=== PATIENT | female | born 1950 | race Caucasian/White ===

== ENCOUNTER → 2017-02-16 | Outpatient (CLI) | payer MEDICARE ==
[~2017-02-16] MED LIST: AMLO5TAB2 PO; BUDE10.2 PO; CLON0.1T PO; CLON0.2T10 PO; DUONEB INH; FURO20TA3 PO; IPRA15SP2 INH; IPRA3AMP INH; LEVO500T8 PO; METF850T2 PO; OLME1TAB28 PO; OLME20TA19 PO; OLME40TA12 PO; PANT40TA5 PO; PRAV40TA2 PO; PRED10TA14 PO; PRED50TA PO; SIMV10TA3 PO; oxygen INH
== END | disposition home or self-care (01) ==
LOC: CARD 12:22
PROVIDERS: ATTEND Nurse Practitioner Family
DX: J44.9 Chronic obstructive pulmonary disease, unspecified (principal); J96.10 Chronic respiratory failure, unspecified whether with hypoxia or hypercapnia
CPT/HCPCS: 94060; 94726; 94729

== ENCOUNTER → 2017-04-08 | Outpatient (CLI) | payer MEDICARE | LOC: PETCFH 07:56 | DX: R14.0 Abdominal distension (gaseous) (principal) | CPT/HCPCS: 78227; A9537 ==

== ENCOUNTER → 2017-04-26 | Outpatient (CLI) | payer MEDICARE | END | disposition home or self-care (01) | LOC: CFH 08:19 | PROVIDERS: ATTEND Nurse Practitioner | DX: Z13.820 Encounter for screening for osteoporosis (principal); M81.0 Age-related osteoporosis without current pathological fracture; N95.8 Other specified menopausal and perimenopausal disorders | CPT/HCPCS: 77080 ==

== ENCOUNTER 2017-06-27 23:43 | Inpatient (IN) | payer MEDICARE ==
[~2017-06-27] VITALS: Ht 149.9 cm; Wt 75.5 kg
[~2017-06-27 23:43] MED LIST changes: +OLME20TA17 PO; -OLME20TA19 PO
[2017-06-27] MEDS ORDERED: methylPREDNISolone SOD SUCC 125 MG/2 ML ONE (23:51)
[2017-06-28] MEDS ORDERED: methylPREDNISolone SOD SUCC 125 MG/2 ML IVP ONE
[2017-06-28] MEDS ORDERED: SODIUM CHLORIDE FLUSH 10ML SYR IVF ONE
[2017-06-28] MEDS ORDERED: ALBUTEROL/IPRATROPIUM 2.5MG/0.5MG, 3 ML NPPB PRN
[2017-06-28 00:39] LABS: MEAN CORPUSCULAR HEMOGLOBIN 24.8 pg (27.0-34.8); MEAN CORPUSCULAR HGB CONC 32.2 g/dL (32.4-35.8); PLATELET COUNT 641 x10^3/uL (130-400); RED BLOOD COUNT 5.06 x10^6/uL (3.82-5.3); RED CELL DISTRIBUTION WIDTH 16.2 % (9.6-15.2)
[2017-06-28 00:44] LABS: MD YES
[2017-06-28] MEDS: ALBUTEROL/IPRATROPIUM 2.5MG/0.5MG, 3 ML NPPB SCH ×6 (00:48→20:00)
[2017-06-28 00:49] LABS: ALANINE AMINOTRANSFERASE 38 U/L (12-78); ALBUMIN 3.8 g/dL (3.4-5.0); ANION GAP 8 mmol/L (5-15); CALCIUM 8.9 mg/dL (8.5-10.1); CHLORIDE 102 mmol/L (98-107); CREATININE 0.58 mg/dL (0.55-1.02)
[2017-06-28 00:54] LABS: ALKALINE PHOSPHATASE 101 U/L (45-117); ANISOCYTOSIS 1+; BILIRUBIN,TOTAL 0.3 mg/dL (0.2-1.0); LYMPH#(MANUAL) 2.82 x10^3/uL (1-3.4); LYMPHS% (MANUAL) 15 % (22-44); MONOS#(MANUAL) 0.56 x10^3/uL (0.3-2.7); MONOS% (MANUAL) 3 % (2-9); REACTIVE LYMPHS # (MANUAL) 0.19 x10^3/uL (0-0); REACTIVE LYMPHS % (MANUAL) 1 % (0-0); SEG#(MANUAL) 15.23 x10^3/uL (1.8-6.8); SEGS% (MANUAL) 81 % (42-75); TOTAL PROTEIN 7.7 g/dL (6.4-8.2); TROPONIN I 0.027 ng/mL (0.000-0.045)
[2017-06-28 00:55] LABS: POLYCHROMASIA 1+
[2017-06-28 00:59] LABS: <PLATELET ESTIMATE> INCREASED
[2017-06-28 01:00] LABS: LARGE PLATELETS 1+
[2017-06-28] MEDS ORDERED: AZITHROMYCIN 500 MG in SODIUM CHLORIDE 0.9% 250 ML IV ONE (01:30)
[2017-06-28 01:45] VITALS: BP 147/79
[2017-06-28] MEDS ORDERED: ALBUTEROL/IPRATROPIUM 2.5MG/0.5MG, 3 ML ONE (01:49)
[2017-06-28] MEDS ORDERED: GLUCAGON 1 MG IM PRN (02:00)
[2017-06-28] MEDS ORDERED: DOCUSATE 100 MG CAPSULE PO PRN (02:00)
[2017-06-28] MEDS ORDERED: GUAIFENESIN/DM 200-20MG, 10ML UDC PO PRN (02:00)
[2017-06-28] MEDS ORDERED: DEXTROSE 4 GM TAB.CHEW PO PRN (02:00)
[2017-06-28] MEDS ORDERED: TEMAZEPAM 15 MG CAPSULE PO PRN (02:00)
[2017-06-28] MEDS ORDERED: DEXTROSE 50%, 50ML SYRINGE IVPush PRN (02:00)
[2017-06-28] MEDS ORDERED: ACETAMINOPHEN 325 MG TABLET PO PRN (02:00)
[2017-06-28] MEDS ORDERED: ONDANSETRON ODT 4 MG PO PRN (02:00)
[2017-06-28] MEDS ORDERED: ENALAPRILAT 1.25 MG/ML, 2ML IVPush PRN (02:00)
[2017-06-28] MEDS ORDERED: POTASSIUM CHLORIDE 20 MEQ TAB.ER.PRT PO ONE (02:00)
[2017-06-28] MEDS: ENOXAPARIN 40 MG/0.4 ML SQ SCH (02:57)
[2017-06-28] MEDS ORDERED: PRED5TAB PO (05:24)
[2017-06-28] MEDS ORDERED: CLON0.1T PO (05:24)
[2017-06-28 08:23] VITALS: BP 154/82
[2017-06-28] MEDS: HYDROCHLOROTHIAZIDE 25 MG TABLET PO SCH (08:44)
[2017-06-28] MEDS: DOXYCYCLINE 100MG TABLET PO SCH ×2 (08:45→21:02)
[2017-06-28] MEDS: PANTOPROZOLE 40MG TABLET PO SCH (08:45)
[2017-06-28] MEDS: SODIUM CHLORIDE FLUSH 10ML SYR IVF SCH ×2 (08:46→21:02)
[2017-06-28] MEDS: methylPREDNISolone SOD SUCC 125 MG/2 ML IVPush SCH (08:46)
[2017-06-28] MEDS ORDERED: AMLODIPINE 5 MG TABLET PO SCH (09:00)
[2017-06-28] MEDS ORDERED: VALSARTAN 320 MG TABLET PO SCH (09:00)
[2017-06-28] MEDS: VALSARTAN 320 MG TABLET PO SCH (09:01)
[2017-06-28] MEDS: INSULIN LISPRO 100 UNITS/ML, PEN SQ-INSULIN SCH ×4 (09:02→21:01)
[2017-06-28 12:25] VITALS: BP 156/79
[2017-06-28 21:00] VITALS: BP 159/78
[2017-06-28] MEDS: PRAVASTATIN 40 MG TABLET PO SCH (21:02)
[2017-06-28 22:30] VITALS: BP 182/91
[2017-06-29] MEDS: ENOXAPARIN 40 MG/0.4 ML SQ SCH (01:17)
[2017-06-29] MEDS: methylPREDNISolone SOD SUCC 125 MG/2 ML IVPush SCH ×2 (01:17→12:09)
[2017-06-29 01:25] VITALS: BP 158/80
[2017-06-29] MEDS: ALBUTEROL/IPRATROPIUM 2.5MG/0.5MG, 3 ML NPPB SCH ×4 (06:28→20:00)
[2017-06-29 07:18] LABS: MEAN CORPUSCULAR HEMOGLOBIN 24.6 pg (27.0-34.8); MEAN CORPUSCULAR HGB CONC 31.6 g/dL (32.4-35.8); MEAN CORPUSCULAR VOLUME 77.7 fL (80-100); MEAN PLATELET VOLUME 7.9 fL (7.4-10.4); PLATELET COUNT 604 x10^3/uL (130-400); RED BLOOD COUNT 4.62 x10^6/uL (3.82-5.3); RED CELL DISTRIBUTION WIDTH 16.3 % (9.6-15.2)
[2017-06-29 07:28] LABS: ALBUMIN 3.4 g/dL (3.4-5.0); CHLORIDE 107 mmol/L (98-107)
[2017-06-29 07:34] LABS: ALANINE AMINOTRANSFERASE 43 U/L (12-78); ANION GAP 6 mmol/L (5-15); CALCIUM 8.9 mg/dL (8.5-10.1)
[2017-06-29 07:35] VITALS: BP 152/77
[2017-06-29 07:37] LABS: ALKALINE PHOSPHATASE 85 U/L (45-117); BILIRUBIN,TOTAL 0.2 mg/dL (0.2-1.0); CREATININE 0.68 mg/dL (0.55-1.02); TOTAL PROTEIN 6.9 g/dL (6.4-8.2)
[2017-06-29 07:40] LABS: HEMOGLOBIN A1C 7.3 % (4.2-6.3)
[2017-06-29] MEDS: INSULIN LISPRO 100 UNITS/ML, PEN SQ-INSULIN SCH ×4 (08:11→20:54)
[2017-06-29] MEDS: VALSARTAN 320 MG TABLET PO SCH (08:13)
[2017-06-29] MEDS: SODIUM CHLORIDE FLUSH 10ML SYR IVF SCH ×2 (08:13→20:46)
[2017-06-29] MEDS: DOXYCYCLINE 100MG TABLET PO SCH ×2 (08:14→20:47)
[2017-06-29] MEDS: PANTOPROZOLE 40MG TABLET PO SCH (08:14)
[2017-06-29] MEDS: HYDROCHLOROTHIAZIDE 25 MG TABLET PO SCH (08:14)
[2017-06-29 09:13] LABS: BASOPHILS # (AUTO) 0.02 x10^3/uL (0-0.1); BASOPHILS % (AUTO) 0 % (0-1); EOSINOPHILS # (AUTO) 0.23 x10^3/uL (0-0.4); EOSINOPHILS % (AUTO) 1 % (1-7); LYMPHOCYTES # (AUTO) 0.77 x10^3/uL (1-3.4); LYMPHOCYTES % (AUTO) 4 % (22-44); MD SCAN; MONOCYTES # (AUTO) 0.15 x10^3/uL (0.2-0.8); MONOCYTES % (AUTO) 1 % (2-9); NEUTROPHILS # (AUTO) 17.03 x10^3/uL (1.8-6.8); NEUTROPHILS % (AUTO) 94 % (42-75)
[2017-06-29 13:08] VITALS: BP 122/74
[2017-06-29 19:08] VITALS: BP 138/76
[2017-06-29] MEDS: PRAVASTATIN 40 MG TABLET PO SCH (20:47)
[2017-06-29] MEDS ORDERED: AMLODIPINE 5 MG TABLET PO SCH (21:00)
[2017-06-30] MEDS: methylPREDNISolone SOD SUCC 125 MG/2 ML IVPush SCH ×2 (00:57→11:51)
[2017-06-30] MEDS: ENOXAPARIN 40 MG/0.4 ML SQ SCH (00:57)
[2017-06-30 01:03] VITALS: BP 131/77
[2017-06-30] MEDS: ALBUTEROL/IPRATROPIUM 2.5MG/0.5MG, 3 ML NPPB SCH ×3 (05:31→14:35)
[2017-06-30 07:25] VITALS: BP 149/78
[2017-06-30] MEDS: PANTOPROZOLE 40MG TABLET PO SCH (08:42)
[2017-06-30] MEDS: HYDROCHLOROTHIAZIDE 25 MG TABLET PO SCH (08:43)
[2017-06-30] MEDS: VALSARTAN 320 MG TABLET PO SCH (08:43)
[2017-06-30] MEDS: DOXYCYCLINE 100MG TABLET PO SCH (08:43)
[2017-06-30] MEDS: SODIUM CHLORIDE FLUSH 10ML SYR IVF SCH (08:44)
[2017-06-30] MEDS: INSULIN LISPRO 100 UNITS/ML, PEN SQ-INSULIN SCH ×2 (08:45→11:30)
[2017-06-30 14:29] VITALS: BP 152/78
[2017-06-30] MEDS ORDERED: DOXY100T PO (15:20)
[2017-06-30] MEDS ORDERED: PRED20TA PO (15:20)
== END 2017-06-30 17:07 | disposition home or self-care (01) | DRG 189 ==
LOC: ED 23:59 → EDIP 06-28 01:05 → 5SO 06-28 01:51 → DCLOUNGE 06-30 16:50
PROVIDERS: ADMIT Internal Medicine; ATTEND Internal Medicine
DX: J96.21 Acute and chronic respiratory failure with hypoxia (principal); Z99.81 Dependence on supplemental oxygen; E11.65 Type 2 diabetes mellitus with hyperglycemia; J44.0 Chronic obstructive pulmonary disease with (acute) lower respiratory infection; J44.1 Chronic obstructive pulmonary disease with (acute) exacerbation; I16.0 Hypertensive urgency; E66.9 Obesity, unspecified; Z68.33 Body mass index [BMI] 33.0-33.9, adult; E78.5 Hyperlipidemia, unspecified; F41.9 Anxiety disorder, unspecified; I10 Essential (primary) hypertension; I45.10 Unspecified right bundle-branch block; J20.9 Acute bronchitis, unspecified; Z79.52 Long term (current) use of systemic steroids; Z87.891 Personal history of nicotine dependence; Z88.6 Allergy status to analgesic agent; Z88.1 Allergy status to other antibiotic agents; Z88.8 Allergy status to other drugs, medicaments and biological substances; Z91.048 Other nonmedicinal substance allergy status; Z51.5 Encounter for palliative care
CPT/HCPCS: 36415; 71045; 80053; 82962; 83036; 83880; 84484; 85025; 87040; 93005; 94640; 96374; 96375; J0456; J1650; J7620; J1815; J2930; J7050

== ENCOUNTER → 2017-09-30 | Outpatient (CLI) | payer MEDICARE ==
[~2017-09-30] MED LIST changes: +DOXY100T PO; +PRED20TA PO; +PRED5TAB PO
== END | disposition home or self-care (01) ==
LOC: CFH 08:11
PROVIDERS: ATTEND Nurse Practitioner Family
DX: J43.9 Emphysema, unspecified (principal); I70.0 Atherosclerosis of aorta
CPT/HCPCS: 71250

== ENCOUNTER → 2017-11-09 | Outpatient (CLI) | payer MEDICARE ==
[~2017-11-09] MED LIST changes: -IPRA3AMP INH; +IPRA3AMP30 INH; +OMNIPAQUE 350 MG/ML, 100ML BOTTLE ONE
== END | disposition home or self-care (01) ==
LOC: CFH 08:32
DX: K76.0 Fatty (change of) liver, not elsewhere classified (principal); J43.9 Emphysema, unspecified; E11.9 Type 2 diabetes mellitus without complications; I51.7 Cardiomegaly
CPT/HCPCS: 74177; 82565; Q9967

== ENCOUNTER 2018-04-07 07:50 | Inpatient (IN) | payer MEDICARE ==
[~2018-04-07] VITALS: Ht 147.3 cm; Wt 73.3 kg
[~2018-04-07 07:50] MED LIST changes: +AMLO-150 PO; -AMLO5TAB2 PO; -CLON0.1T PO; +CLON0.1T22 PO; +METF850T10 PO; -METF850T2 PO; -OMNIPAQUE 350 MG/ML, 100ML BOTTLE ONE
[2018-04-07 08:23] LABS: BASOPHILS # (AUTO) 0.07 x10^3/uL (0-0.1); BASOPHILS % (AUTO) 1 % (0-1); EOSINOPHILS # (AUTO) 0.11 x10^3/uL (0-0.4); EOSINOPHILS % (AUTO) 1 % (1-7); LYMPHOCYTES # (AUTO) 1.85 x10^3/uL (1-3.4); LYMPHOCYTES % (AUTO) 15 % (22-44); MD NO; MEAN CORPUSCULAR HEMOGLOBIN 22.3 pg (27.0-34.8); MEAN CORPUSCULAR HGB CONC 31.2 g/dL (32.4-35.8); MEAN CORPUSCULAR VOLUME 71.5 fL (80-100); MEAN PLATELET VOLUME 7.8 fL (7.4-10.4); MONOCYTES # (AUTO) 0.61 x10^3/uL (0.2-0.8); MONOCYTES % (AUTO) 5 % (2-9); NEUTROPHILS # (AUTO) 9.52 x10^3/uL (1.8-6.8); NEUTROPHILS % (AUTO) 78 % (42-75); PLATELET COUNT 515 x10^3/uL (130-400); RED BLOOD COUNT 5.14 x10^6/uL (3.82-5.3); RED CELL DISTRIBUTION WIDTH 17.6 % (9.6-15.2)
[2018-04-07 08:33] LABS: ALANINE AMINOTRANSFERASE 35 U/L (12-78); ALBUMIN 3.6 g/dL (3.4-5.0); ANION GAP 4 mmol/L (5-15); CALCIUM 8.8 mg/dL (8.5-10.1); CHLORIDE 100 mmol/L (98-107); CREATININE 0.54 mg/dL (0.55-1.02)
[2018-04-07 08:37] LABS: ALKALINE PHOSPHATASE 98 U/L (45-117); BILIRUBIN,TOTAL 0.2 mg/dL (0.2-1.0); TOTAL PROTEIN 7.4 g/dL (6.4-8.2); TROPONIN I < 0.015 ng/mL (0.000-0.045)
[2018-04-07] MEDS ORDERED: methylPREDNISolone SOD SUCC 125 MG/2 ML IVP ONE (09:00)
[2018-04-07] MEDS ORDERED: POTASSIUM CHLORIDE 20 MEQ TAB.ER.PRT PO ONE (09:00)
[2018-04-07] MEDS ORDERED: POTASSIUM CHLORIDE 20 MEQ TAB.ER.PRT ONE (09:01)
[2018-04-07] MEDS ORDERED: methylPREDNISolone SOD SUCC 125 MG/2 ML ONE (09:07)
--- NOTE | 2018-04-07 09:11 | NUR ---
TASK RN: PT RESTING ON GURNEY. NADN. HALES. MEDICATED PER JUN.
[2018-04-07] MEDS ORDERED: SODIUM CHLORIDE FLUSH 10ML SYR IVF PRN (09:30)
--- NOTE | 2018-04-07 09:31 | NUR ---
SBAR TO RIYA PACHECO VIA TELEPHONE
[2018-04-07] MEDS ORDERED: hydrALAzine 20 MG/ML, 1ML IVPush PRN (10:00)
[2018-04-07] MEDS ORDERED: IPRATROPIUM BROMIDE INH PRN (10:00)
[2018-04-07] MEDS ORDERED: ONDANSETRON 2MG/ML, 2ML IVPush PRN (10:00)
[2018-04-07 10:18] VITALS: BP 143/70
[2018-04-07 10:41] VITALS: BP 143/80
[2018-04-07] MEDS ORDERED: AZITHROMYCIN 500 MG in SODIUM CHLORIDE 0.9% 250 ML IV SCH (11:00)
[2018-04-07] MEDS ORDERED: DUONEB MC SCH (11:00)
[2018-04-07] MEDS ORDERED: HYDRALAZINE MC SCH (11:00)
[2018-04-07] MEDS ORDERED: ATROVENT MC SCH (11:00)
[2018-04-07] MEDS ORDERED: ALBUTEROL/IPRATROPIUM 2.5MG/0.5MG, 3 ML ONE (11:45)
[2018-04-07] MEDS: GUAIFENESIN 200 MG TABLET PO SCH ×3 (11:54→21:17)
[2018-04-07] MEDS: ALBUTEROL/IPRATROPIUM 2.5MG/0.5MG, 3 ML NPPB SCH ×4 (12:03→21:50)
[2018-04-07] MEDS: INSULIN LISPRO 100 UNITS/ML, PEN SQ-INSULIN SCH ×3 (12:39→22:15)
[2018-04-07 15:20] VITALS: BP 164/75
[2018-04-07 15:58] LABS: RAPID INFLUENZA A Negative (Negative); RAPID INFLUENZA B Negative (Negative)
[2018-04-07] MEDS ORDERED: IPRATROPIUM MC SCH (16:06)
[2018-04-07] MEDS ORDERED: ALBUTEROL MC SCH (16:06)
[2018-04-07] MEDS ORDERED: [UNRECOGNIZED DRUG - OTHER] MC SCH (16:06)
[2018-04-07] MEDS: ALBUTEROL MC SCH (16:13)
[2018-04-07] MEDS: [UNRECOGNIZED DRUG - OTHER] MC SCH (16:13)
[2018-04-07] MEDS: IPRATROPIUM MC SCH (16:13)
[2018-04-07] MEDS: methylPREDNISolone SOD SUCC 125 MG/2 ML IVPush SCH ×2 (16:16→21:18)
[2018-04-07] MEDS: POTASSIUM CHLORIDE 20 MEQ TAB.ER.PRT PO SCH (16:33)
[2018-04-07] MEDS: DOXYCYCLINE 100 MG in DEXTROSE 5% 250 ML IV SCH (16:34)
[2018-04-07 16:55] LABS: HEMOGLOBIN A1C 7.4 % (4.2-6.3)
[2018-04-07] MEDS: ENOXAPARIN 40 MG/0.4 ML SQ SCH (18:00)
[2018-04-07] MEDS ORDERED: OMNIPAQUE 350 MG/ML, 100ML BOTTLE ONE (18:19)
[2018-04-07 20:36] VITALS: BP 169/93
[2018-04-07] MEDS ORDERED: ALBUTEROL SULFATE 2.5 MG/3 ML HHN SCH (21:00)
[2018-04-07] MEDS ORDERED: TEMPLATE NON-FORMULARY MED. (Budesonide/Formoterol Fumarate (Symbicort 160-4.5 Mcg Inhaler PO SCH (21:00)
[2018-04-07] MEDS: PRAVASTATIN 40 MG TABLET PO SCH (21:16)
[2018-04-07] MEDS: BUDESONIDE 0.5 MG/2 ML INHA NPPB SCH (21:50)
[2018-04-08] MEDS: IPRATROPIUM MC SCH ×3 (00:13→16:13)
[2018-04-08] MEDS: ALBUTEROL MC SCH ×3 (00:13→16:13)
[2018-04-08] MEDS: [UNRECOGNIZED DRUG - OTHER] MC SCH ×3 (00:13→16:13)
[2018-04-08 01:28] VITALS: BP 138/75
[2018-04-08] MEDS: ALBUTEROL/IPRATROPIUM 2.5MG/0.5MG, 3 ML NPPB SCH ×6 (02:46→23:00)
[2018-04-08] MEDS: methylPREDNISolone SOD SUCC 125 MG/2 ML IVPush SCH ×4 (03:36→21:10)
[2018-04-08] MEDS: DOXYCYCLINE 100 MG in DEXTROSE 5% 250 ML IV SCH ×2 (03:37→16:14)
[2018-04-08 05:43] LABS: MEAN CORPUSCULAR HEMOGLOBIN 22.2 pg (27.0-34.8); MEAN CORPUSCULAR HGB CONC 30.8 g/dL (32.4-35.8); MEAN PLATELET VOLUME 8.3 fL (7.4-10.4); PLATELET COUNT 492 x10^3/uL (130-400); RED BLOOD COUNT 4.66 x10^6/uL (3.82-5.3); RED CELL DISTRIBUTION WIDTH 17.9 % (9.6-15.2)
[2018-04-08 05:58] LABS: CHLORIDE 102 mmol/L (98-107)
[2018-04-08] MEDS: GUAIFENESIN 200 MG TABLET PO SCH ×4 (06:24→21:11)
[2018-04-08 06:31] LABS: BASOPHILS % (AUTO) 0 % (0-1); EOSINOPHILS % (AUTO) 0 % (1-7); LYMPHOCYTES # (AUTO) 0.48 x10^3/uL (1-3.4); LYMPHOCYTES % (AUTO) 4 % (22-44); MD SCAN; MONOCYTES # (AUTO) 0.15 x10^3/uL (0.2-0.8); MONOCYTES % (AUTO) 1 % (2-9); NEUTROPHILS # (AUTO) 12.05 x10^3/uL (1.8-6.8); NEUTROPHILS % (AUTO) 95 % (42-75)
[2018-04-08 06:35] LABS: ALANINE AMINOTRANSFERASE 45 U/L (12-78); ALBUMIN 3.2 g/dL (3.4-5.0); ALKALINE PHOSPHATASE 94 U/L (45-117); ANION GAP 9 mmol/L (5-15); BILIRUBIN,TOTAL 0.4 mg/dL (0.2-1.0); CALCIUM 8.6 mg/dL (8.5-10.1); CREATININE 0.42 mg/dL (0.55-1.02); TOTAL PROTEIN 6.6 g/dL (6.4-8.2)
[2018-04-08] MEDS: BUDESONIDE 0.5 MG/2 ML INHA NPPB SCH ×2 (07:00→19:06)
[2018-04-08] MEDS: INSULIN LISPRO 100 UNITS/ML, PEN SQ-INSULIN SCH ×4 (07:42→21:11)
[2018-04-08] MEDS: POTASSIUM CHLORIDE 20 MEQ TAB.ER.PRT PO SCH ×2 (07:42→16:14)
[2018-04-08] MEDS: HYDROCHLOROTHIAZIDE 25 MG TABLET PO SCH (07:43)
[2018-04-08] MEDS: LOSARTAN 50MG TABLET PO SCH (07:43)
[2018-04-08] MEDS: PANTOPROZOLE 40MG TABLET PO SCH (07:43)
[2018-04-08 07:49] VITALS: BP 164/78
[2018-04-08] MEDS ORDERED: OLMESARTAN PO SCH (09:00)
[2018-04-08] MEDS ORDERED: [UNRECOGNIZED DRUG - OTHER] PO SCH (09:00)
[2018-04-08] MEDS ORDERED: AMLODIPINE 5 MG TABLET PO SCH (09:00)
[2018-04-08] MEDS ORDERED: HYDROCHLOROTHIAZIDE PO SCH (09:00)
[2018-04-08 09:04] VITALS: BP 131/77
[2018-04-08 14:12] VITALS: BP 125/74
[2018-04-08] MEDS: ENOXAPARIN 40 MG/0.4 ML SQ SCH (18:16)
[2018-04-08] MEDS ORDERED: INSULIN GLARGINE 100 UNITS/ML, PEN SQ-INSULIN SCH (21:00)
[2018-04-08] MEDS: PRAVASTATIN 40 MG TABLET PO SCH (21:11)
[2018-04-08 21:13] VITALS: BP 145/77
[2018-04-08] MEDS: INSULIN GLARGINE 100 UNITS/ML, PEN SQ-INSULIN SCH (21:44)
[2018-04-09 02:02] VITALS: BP 161/88
[2018-04-09] MEDS: ALBUTEROL/IPRATROPIUM 2.5MG/0.5MG, 3 ML NPPB SCH ×6 (03:15→22:50)
[2018-04-09] MEDS: methylPREDNISolone SOD SUCC 125 MG/2 ML IVPush SCH ×4 (03:40→20:34)
[2018-04-09] MEDS: DOXYCYCLINE 100 MG in DEXTROSE 5% 250 ML IV SCH (03:40)
[2018-04-09 05:53] LABS: CHLORIDE 104 mmol/L (98-107)
[2018-04-09 06:19] LABS: ALANINE AMINOTRANSFERASE 59 U/L (12-78); ALBUMIN 3.3 g/dL (3.4-5.0); ALKALINE PHOSPHATASE 88 U/L (45-117); BILIRUBIN,TOTAL 0.4 mg/dL (0.2-1.0); CREATININE 0.59 mg/dL (0.55-1.02); TOTAL PROTEIN 6.6 g/dL (6.4-8.2)
[2018-04-09] MEDS: GUAIFENESIN 200 MG TABLET PO SCH ×4 (06:22→20:28)
[2018-04-09] MEDS: BUDESONIDE 0.5 MG/2 ML INHA NPPB SCH ×2 (06:55→19:20)
[2018-04-09 06:59] LABS: ANION GAP 8 mmol/L (5-15)
[2018-04-09 07:15] VITALS: BP 168/85
[2018-04-09] MEDS: INSULIN LISPRO 100 UNITS/ML, PEN SQ-INSULIN SCH ×4 (08:09→20:35)
[2018-04-09] MEDS: POTASSIUM CHLORIDE 20 MEQ TAB.ER.PRT PO SCH ×2 (08:34→16:15)
[2018-04-09] MEDS: DOXYCYCLINE 100MG TABLET PO SCH ×2 (08:34→20:28)
[2018-04-09] MEDS: PANTOPROZOLE 40MG TABLET PO SCH (08:34)
[2018-04-09] MEDS: LOSARTAN 50MG TABLET PO SCH (08:35)
[2018-04-09] MEDS: HYDROCHLOROTHIAZIDE 25 MG TABLET PO SCH (08:35)
[2018-04-09] MEDS: METOPROLOL TARTRATE 25 MG TABLET PO SCH ×2 (08:42→18:06)
[2018-04-09] MEDS ORDERED: AMLODIPINE 5 MG TABLET PO SCH ×2 (09:00)
[2018-04-09 13:10] VITALS: BP 131/76
[2018-04-09] MEDS: ENOXAPARIN 40 MG/0.4 ML SQ SCH (18:05)
[2018-04-09 20:20] VITALS: BP 162/97
[2018-04-09] MEDS: PRAVASTATIN 40 MG TABLET PO SCH (20:28)
[2018-04-09] MEDS: INSULIN GLARGINE 100 UNITS/ML, PEN SQ-INSULIN SCH (20:35)
[2018-04-10 01:51] VITALS: BP 129/75
[2018-04-10] MEDS: ALBUTEROL/IPRATROPIUM 2.5MG/0.5MG, 3 ML NPPB SCH ×6 (02:45→23:05)
[2018-04-10] MEDS: methylPREDNISolone SOD SUCC 125 MG/2 ML IVPush SCH ×4 (02:57→20:38)
[2018-04-10] MEDS: GUAIFENESIN 200 MG TABLET PO SCH ×4 (06:00→20:39)
[2018-04-10] MEDS: METOPROLOL TARTRATE 25 MG TABLET PO SCH ×3 (06:16→17:07)
[2018-04-10] MEDS: INSULIN LISPRO 100 UNITS/ML, PEN SQ-INSULIN SCH ×4 (07:19→20:41)
[2018-04-10 07:50] VITALS: BP 158/78
[2018-04-10] MEDS: BUDESONIDE 0.5 MG/2 ML INHA NPPB SCH ×2 (07:50→18:43)
[2018-04-10] MEDS: PANTOPROZOLE 40MG TABLET PO SCH (08:10)
[2018-04-10] MEDS: HYDROCHLOROTHIAZIDE 25 MG TABLET PO SCH (08:10)
[2018-04-10] MEDS: AMLODIPINE 10 MG TAB PO SCH (08:10)
[2018-04-10] MEDS: POTASSIUM CHLORIDE 20 MEQ TAB.ER.PRT PO SCH ×2 (08:11→16:14)
[2018-04-10] MEDS: DOXYCYCLINE 100MG TABLET PO SCH ×2 (08:11→20:39)
[2018-04-10] MEDS: LOSARTAN 50MG TABLET PO SCH (08:11)
[2018-04-10] MEDS ORDERED: FUROSEMIDE 10 MG/ML ORAL SOL PO SCH (09:00)
[2018-04-10] MEDS ORDERED: FUROSEMIDE 20 MG TABLET PO SCH (09:00)
[2018-04-10 14:00] VITALS: BP 124/66
[2018-04-10] MEDS: ENOXAPARIN 40 MG/0.4 ML SQ SCH (17:07)
[2018-04-10 20:31] VITALS: BP 151/77
[2018-04-10] MEDS: INSULIN GLARGINE 100 UNITS/ML, PEN SQ-INSULIN SCH (20:41)
[2018-04-10] MEDS: PRAVASTATIN 40 MG TABLET PO SCH (20:49)
[2018-04-11] MEDS: ALBUTEROL/IPRATROPIUM 2.5MG/0.5MG, 3 ML NPPB SCH ×6 (02:11→22:00)
[2018-04-11 02:26] VITALS: BP 146/71
[2018-04-11] MEDS: methylPREDNISolone SOD SUCC 125 MG/2 ML IVPush SCH ×4 (03:56→20:59)
[2018-04-11] MEDS: GUAIFENESIN 200 MG TABLET PO SCH ×4 (06:12→21:00)
[2018-04-11] MEDS: METOPROLOL TARTRATE 25 MG TABLET PO SCH ×2 (06:12→18:01)
[2018-04-11] MEDS: BUDESONIDE 0.5 MG/2 ML INHA NPPB SCH ×2 (06:30→21:00)
[2018-04-11 06:53] VITALS: BP 142/69
[2018-04-11] MEDS: INSULIN LISPRO 100 UNITS/ML, PEN SQ-INSULIN SCH ×4 (07:51→21:15)
[2018-04-11] MEDS: INSULIN GLARGINE 100 UNITS/ML, PEN SQ-INSULIN SCH ×2 (08:48→21:14)
[2018-04-11] MEDS: HYDROCHLOROTHIAZIDE 25 MG TABLET PO SCH (08:49)
[2018-04-11] MEDS: POTASSIUM CHLORIDE 20 MEQ TAB.ER.PRT PO SCH ×2 (08:49→16:46)
[2018-04-11] MEDS: LOSARTAN 50MG TABLET PO SCH (08:49)
[2018-04-11] MEDS: DOXYCYCLINE 100MG TABLET PO SCH ×2 (08:49→21:00)
[2018-04-11] MEDS: FUROSEMIDE 40 MG TABLET PO SCH (08:49)
[2018-04-11] MEDS: AMLODIPINE 10 MG TAB PO SCH (08:50)
[2018-04-11] MEDS: PANTOPROZOLE 40MG TABLET PO SCH (08:50)
[2018-04-11 13:43] VITALS: BP 138/74
[2018-04-11] MEDS ORDERED: LORazepam 2 MG/ML, 1ML ONE (15:03)
[2018-04-11] MEDS: LORazepam 2 MG/ML, 1ML IVPush PRN ×2 (15:07→23:18)
[2018-04-11] MEDS: ENOXAPARIN 40 MG/0.4 ML SQ SCH (18:01)
[2018-04-11 19:45] VITALS: BP 133/71
[2018-04-11] MEDS: PRAVASTATIN 40 MG TABLET PO SCH (21:14)
[2018-04-12] MEDS: ALBUTEROL/IPRATROPIUM 2.5MG/0.5MG, 3 ML NPPB SCH ×6 (01:19→22:33)
[2018-04-12] MEDS: methylPREDNISolone SOD SUCC 125 MG/2 ML IVPush SCH ×4 (02:55→22:13)
[2018-04-12 03:45] VITALS: BP 126/59
[2018-04-12 05:16] LABS: MEAN CORPUSCULAR HEMOGLOBIN 22.7 pg (27.0-34.8); MEAN CORPUSCULAR HGB CONC 31.2 g/dL (32.4-35.8); MEAN CORPUSCULAR VOLUME 72.7 fL (80-100); MEAN PLATELET VOLUME 8.5 fL (7.4-10.4); PLATELET COUNT 516 x10^3/uL (130-400); RED BLOOD COUNT 4.99 x10^6/uL (3.82-5.3); RED CELL DISTRIBUTION WIDTH 18.3 % (9.6-15.2)
[2018-04-12 05:28] LABS: CHLORIDE 105 mmol/L (98-107)
[2018-04-12 05:33] LABS: ALANINE AMINOTRANSFERASE 44 U/L (12-78); ALBUMIN 3.2 g/dL (3.4-5.0); ALKALINE PHOSPHATASE 67 U/L (45-117); BILIRUBIN,TOTAL 0.2 mg/dL (0.2-1.0); CALCIUM 9.5 mg/dL (8.5-10.1); CREATININE 0.54 mg/dL (0.55-1.02); TOTAL PROTEIN 5.9 g/dL (6.4-8.2)
[2018-04-12 05:48] LABS: ANION GAP 6 mmol/L (5-15)
[2018-04-12 05:49] LABS: BASOPHILS # (AUTO) 0.01 x10^3/uL (0-0.1); BASOPHILS % (AUTO) 0 % (0-1); EOSINOPHILS % (AUTO) 0 % (1-7); LYMPHOCYTES # (AUTO) 0.44 x10^3/uL (1-3.4); LYMPHOCYTES % (AUTO) 3 % (22-44); MD SCAN; MONOCYTES # (AUTO) 0.19 x10^3/uL (0.2-0.8); MONOCYTES % (AUTO) 1 % (2-9); NEUTROPHILS # (AUTO) 14.33 x10^3/uL (1.8-6.8); NEUTROPHILS % (AUTO) 96 % (42-75)
[2018-04-12] MEDS: GUAIFENESIN 200 MG TABLET PO SCH ×4 (06:13→22:15)
[2018-04-12] MEDS: METOPROLOL TARTRATE 25 MG TABLET PO SCH ×2 (06:13→17:56)
[2018-04-12] MEDS: BUDESONIDE 0.5 MG/2 ML INHA NPPB SCH ×2 (07:05→21:00)
[2018-04-12 07:44] VITALS: BP 150/70
[2018-04-12] MEDS: POTASSIUM CHLORIDE 20 MEQ TAB.ER.PRT PO SCH ×2 (08:18→16:55)
[2018-04-12] MEDS: LOSARTAN 50MG TABLET PO SCH (08:19)
[2018-04-12] MEDS: HYDROCHLOROTHIAZIDE 25 MG TABLET PO SCH (08:19)
[2018-04-12] MEDS: AMLODIPINE 10 MG TAB PO SCH ×2 (08:19→08:47)
[2018-04-12] MEDS: INSULIN GLARGINE 100 UNITS/ML, PEN SQ-INSULIN SCH ×2 (08:20→22:18)
[2018-04-12] MEDS: FUROSEMIDE 40 MG TABLET PO SCH (08:20)
[2018-04-12] MEDS: PANTOPROZOLE 40MG TABLET PO SCH (08:20)
[2018-04-12] MEDS: DOXYCYCLINE 100MG TABLET PO SCH ×2 (08:20→22:16)
[2018-04-12] MEDS: INSULIN LISPRO 100 UNITS/ML, PEN SQ-INSULIN SCH ×4 (08:21→22:17)
[2018-04-12 12:21] VITALS: BP 121/72
[2018-04-12] MEDS: ENOXAPARIN 40 MG/0.4 ML SQ SCH (17:56)
[2018-04-12 21:55] VITALS: BP 137/65
[2018-04-12] MEDS: PRAVASTATIN 40 MG TABLET PO SCH (22:23)
[2018-04-13] MEDS: ALBUTEROL/IPRATROPIUM 2.5MG/0.5MG, 3 ML NPPB SCH ×3 (03:00→11:44)
[2018-04-13] MEDS: methylPREDNISolone SOD SUCC 125 MG/2 ML IVPush SCH ×2 (03:35→08:49)
[2018-04-13 03:45] VITALS: BP 131/53
[2018-04-13 04:46] LABS: MEAN CORPUSCULAR HEMOGLOBIN 22.4 pg (27.0-34.8); MEAN CORPUSCULAR HGB CONC 30.8 g/dL (32.4-35.8); MEAN CORPUSCULAR VOLUME 72.7 fL (80-100); MEAN PLATELET VOLUME 8.7 fL (7.4-10.4); PLATELET COUNT 581 x10^3/uL (130-400); RED BLOOD COUNT 5.26 x10^6/uL (3.82-5.3); RED CELL DISTRIBUTION WIDTH 18.4 % (9.6-15.2)
[2018-04-13 04:56] LABS: ANION GAP 5 mmol/L (5-15); CALCIUM 9.4 mg/dL (8.5-10.1); CHLORIDE 103 mmol/L (98-107)
[2018-04-13 04:57] LABS: CREATININE 0.62 mg/dL (0.55-1.02)
[2018-04-13 05:06] LABS: BASOPHILS # (AUTO) 0.02 x10^3/uL (0-0.1); BASOPHILS % (AUTO) 0 % (0-1); EOSINOPHILS % (AUTO) 0 % (1-7); LYMPHOCYTES % (AUTO) 4 % (22-44); MD SCAN; MONOCYTES # (AUTO) 0.58 x10^3/uL (0.2-0.8); MONOCYTES % (AUTO) 3 % (2-9); NEUTROPHILS # (AUTO) 17.51 x10^3/uL (1.8-6.8); NEUTROPHILS % (AUTO) 93 % (42-75)
[2018-04-13] MEDS: METOPROLOL TARTRATE 25 MG TABLET PO SCH (06:31)
[2018-04-13] MEDS: GUAIFENESIN 200 MG TABLET PO SCH ×2 (06:32→11:55)
[2018-04-13 07:15] VITALS: BP 142/74
[2018-04-13] MEDS: BUDESONIDE 0.5 MG/2 ML INHA NPPB SCH (07:40)
[2018-04-13 08:43] VITALS: BP 116/56
[2018-04-13] MEDS: POTASSIUM CHLORIDE 20 MEQ TAB.ER.PRT PO SCH (08:48)
[2018-04-13] MEDS: FUROSEMIDE 40 MG TABLET PO SCH (08:48)
[2018-04-13] MEDS: PANTOPROZOLE 40MG TABLET PO SCH (08:48)
[2018-04-13] MEDS: DOXYCYCLINE 100MG TABLET PO SCH (08:48)
[2018-04-13] MEDS: HYDROCHLOROTHIAZIDE 25 MG TABLET PO SCH (08:49)
[2018-04-13] MEDS: LOSARTAN 50MG TABLET PO SCH (08:49)
[2018-04-13] MEDS: AMLODIPINE 10 MG TAB PO SCH (08:49)
[2018-04-13] MEDS: INSULIN GLARGINE 100 UNITS/ML, PEN SQ-INSULIN SCH (09:03)
[2018-04-13] MEDS: INSULIN LISPRO 100 UNITS/ML, PEN SQ-INSULIN SCH ×2 (09:03→11:55)
[2018-04-13] MEDS ORDERED: METO25TA35 PO (12:47)
[2018-04-13] MEDS ORDERED: FURO-93 PO (12:47)
[2018-04-13] MEDS ORDERED: DOXY100T PO (12:47)
[2018-04-13] MEDS ORDERED: IPRA3AMP30 INH (12:47)
[2018-04-13 12:57] VITALS: BP 124/68
[2018-04-13] MEDS ORDERED: LORA-445 PO (15:29)
== END 2018-04-13 15:45 | disposition home health service (06) | DRG 872 ==
LOC: ED 08:59 → EDIP 09:11 → 4NOR 10:00 → DCLOUNGE 04-13 15:27
PROVIDERS: ADMIT Hospitalist; ATTEND Hospitalist
DX: A41.9 Sepsis, unspecified organism (principal); J44.0 Chronic obstructive pulmonary disease with (acute) lower respiratory infection; J96.11 Chronic respiratory failure with hypoxia; J44.1 Chronic obstructive pulmonary disease with (acute) exacerbation; J20.9 Acute bronchitis, unspecified; I10 Essential (primary) hypertension; E87.6 Hypokalemia; E78.5 Hyperlipidemia, unspecified; E66.01 Morbid (severe) obesity due to excess calories; F41.9 Anxiety disorder, unspecified; E11.65 Type 2 diabetes mellitus with hyperglycemia; Z87.891 Personal history of nicotine dependence; Z90.710 Acquired absence of both cervix and uterus; Z99.81 Dependence on supplemental oxygen; Z80.1 Family history of malignant neoplasm of trachea, bronchus and lung; Z90.10 Acquired absence of unspecified breast and nipple; Z88.1 Allergy status to other antibiotic agents; Z88.5 Allergy status to narcotic agent; Z88.8 Allergy status to other drugs, medicaments and biological substances; Z91.048 Other nonmedicinal substance allergy status; Z68.33 Body mass index [BMI] 33.0-33.9, adult
CPT/HCPCS: 36415; 36600; 71045; 71275; 80048; 80053; 82803; 82962; 83036; 83880; 84484; 85025; 85379; 87040; 87400; 93005; 94640; 96374; G0378; J0456; J1650; J7060; J7620; J7626; Q9967; J1815; J2060; J2930; J7050

== ENCOUNTER 2018-11-02 09:31 | Outpatient (CLI) | payer MEDICARE, MEDICAID ==
[~2018-11-02 09:31] MED LIST changes: +FURO-93 PO; +LORA-445 PO; +METO25TA35 PO
== END 2018-11-02 23:59 | disposition home or self-care (01) ==
LOC: CFH 09:31
PROVIDERS: ATTEND Family Medicine
DX: Z12.31 Encounter for screening mammogram for malignant neoplasm of breast (principal)
CPT/HCPCS: 77067

== ENCOUNTER 2019-06-15 07:50 | Inpatient (IN) | payer MEDICARE ==
[~2019-06-15] VITALS: Ht 147.3 cm; Wt 71.0 kg
[~2019-06-15 07:50] MED LIST changes: +SIMV10TA18 PO; -SIMV10TA3 PO
[2019-06-15] MEDS ORDERED: ONDANSETRON 2MG/ML, 2ML ONE ×2 (08:10→10:10)
[2019-06-15] MEDS ORDERED: MORPHINE SULFATE 4 MG/ML, 1ML ONE ×3 (08:11→12:55)
[2019-06-15] MEDS: MORPHINE SULFATE 4 MG/ML, 1ML IVPush PRN ×2 (08:16→10:47)
[2019-06-15 08:19] LABS: MEAN CORPUSCULAR HEMOGLOBIN 29.2 pg (27.0-34.8); MEAN CORPUSCULAR HGB CONC 33.1 g/dL (32.4-35.8); MEAN CORPUSCULAR VOLUME 88.2 fL (80-100); MEAN PLATELET VOLUME 8.2 fL (7.4-10.4); PLATELET COUNT 398 x10^3/uL (130-400); RED CELL DISTRIBUTION WIDTH 14.8 % (9.6-15.2)
[2019-06-15 08:31] LABS: ALBUMIN 3.3 g/dL (3.4-5.0); ANION GAP 5 mmol/L (5-15); CALCIUM 8.9 mg/dL (8.5-10.1); CHLORIDE 104 mmol/L (98-107); CREATININE 0.55 mg/dL (0.55-1.02)
--- NOTE | 2019-06-15 08:34 | NUR ---
medicated per emar for 01/11 left hip pain (pre-xray) then transported to radiology at 0825a Transferred from radiology table to Hospital Bed with waffle mattress
[2019-06-15 08:45] LABS: INTERNATIONAL NORMALIZED RATIO 0.93 (0.93-1.1); PROTHROMBIN TIME 9.9 Seconds (9.6-11.5)
[2019-06-15] MEDS ORDERED: SODIUM CHLORIDE FLUSH 10ML SYR IVF ONE (09:00)
[2019-06-15] MEDS ORDERED: ONDANSETRON 2MG/ML, 2ML IVPush ONE (09:00)
[2019-06-15] MEDS ORDERED: HYDROmorphone 2 MG/ML, 1ML IVPush PRN (09:00)
[2019-06-15 09:03] LABS: BASOPHILS # (AUTO) 0.02 x10^3/uL (0-0.1); BASOPHILS % (AUTO) 0 % (0-1); EOSINOPHILS # (AUTO) 0.15 x10^3/uL (0-0.4); EOSINOPHILS % (AUTO) 1 % (1-7); LYMPHOCYTES # (AUTO) 1.06 x10^3/uL (1-3.4); LYMPHOCYTES % (AUTO) 8 % (22-44); MD SCAN; MONOCYTES % (AUTO) 4 % (2-9); NEUTROPHILS # (AUTO) 11.81 x10^3/uL (1.8-6.8); NEUTROPHILS % (AUTO) 87 % (42-75)
[2019-06-15] MEDS ORDERED: HYDROmorphone 1 MG/ML, 1ML INJ ONE (09:24)
[2019-06-15] MEDS ORDERED: HYDROmorphone 1 MG/ML, 1ML INJ IVPush PRN (09:30)
[2019-06-15] MEDS ORDERED: ONDANSETRON 2MG/ML, 2ML IVPush PRN ×2 (09:30→10:00)
[2019-06-15] MEDS ORDERED: SODIUM CHLORIDE FLUSH 10ML SYR IVF PRN (09:30)
--- NOTE | 2019-06-15 09:40 | NUR ---
Bladder scan of 150ml
--- NOTE | 2019-06-15 09:43 | NUR ---
MEDICATED PER EMAR FOR CONTINUED LEFT HIP PAIN AT 10/11 CLEMENTS IN PLACED DRAINING C/Y URINE CMS REMAINS INTACT TO YUNG CACERES AT BEDSIDE TO ADMIT
[2019-06-15] MEDS ORDERED: POTA10CA PO (09:58)
[2019-06-15] MEDS ORDERED: AMLO10TA8 PO (09:58)
[2019-06-15] MEDS ORDERED: ACETAMINOPHEN 325 MG TABLET PO PRN (10:00)
[2019-06-15] MEDS ORDERED: POLYETHYLENE GLYCOL 17 GM PACKET PO PRN (10:00)
[2019-06-15] MEDS ORDERED: HEPARIN 5,000 UNITS/ML, 1ML SQ SCH (10:00)
[2019-06-15] MEDS ORDERED: LORazepam 0.5MG TABLET PO PRN (10:00)
[2019-06-15] MEDS ORDERED: DEXTROSE 50%, 50ML SYRINGE IVPush PRN (10:00)
[2019-06-15] MEDS ORDERED: DEXTROSE 4 GM TAB.CHEW PO PRN (10:00)
[2019-06-15] MEDS ORDERED: ONDANSETRON ODT 4 MG PO PRN (10:00)
[2019-06-15] MEDS ORDERED: GLUCAGON 1 MG IM PRN (10:00)
[2019-06-15] MEDS ORDERED: GABA300C10 PO (10:01)
[2019-06-15] MEDS ORDERED: PROMETHAZINE 25 MG/ML, 1ML ONE (10:35)
--- NOTE | 2019-06-15 10:50 | NUR ---
MEDICATED PER EMAR FOR CONTINUED LEFT HIP PAIN AT 01/11 WELL NAUSEA (PHENERGAN) ULTRASOUND AT BEDSIDE CMS TO LLE REMAINS INTACT
[2019-06-15] MEDS ORDERED: PROMETHAZINE 25 MG/ML, 1ML IV PRN (11:00)
[2019-06-15] MEDS: PROMETHAZINE 25 MG/ML, 1ML IM PRN (11:00)
--- NOTE | 2019-06-15 11:52 | NUR ---
pain/nausea at 05/14 Ordered meal tray (surgery not imminent d/t medical problems) Urimeter emptied of 300ml c/y urine Respiratory at bedside- switch to humidified 02
--- NOTE | 2019-06-15 12:10 | NUR ---
meal tray delivered.
[2019-06-15] MEDS: morphine SULFATE 10 MG/ML, 1ML IVPush PRN ×3 (12:59→20:24)
[2019-06-15] MEDS: INSULIN LISPRO 100 UNITS/ML, PEN SQ-INSULIN SCH ×3 (13:58→20:25)
[2019-06-15] MEDS: BACLOFEN 10 MG TABLET PO PRN (14:17)
[2019-06-15 14:23] VITALS: BP 153/73
[2019-06-15] MEDS ORDERED: ALBUTEROL SULFATE 2.5 MG/3 ML NPPB SCH ×2 (14:30→15:00)
[2019-06-15] MEDS: ALBUTEROL/IPRATROPIUM 2.5MG/0.5MG, 3 ML NPPB SCH ×2 (15:20→19:59)
[2019-06-15] MEDS ORDERED: METOPROLOL TARTRATE 25 MG TAB PO SCH (18:00)
[2019-06-15] MEDS: BUDESONIDE 0.5 MG/2 ML INHA INH SCH (19:59)
[2019-06-15] MEDS ORDERED: ALBUTEROL/IPRATROPIUM 2.5MG/0.5MG, 3 ML NPPB SCH (20:00)
[2019-06-15] MEDS: ATORVASTATIN 10 MG TABLET PO SCH (20:23)
[2019-06-15] MEDS: GABAPENTIN 300 MG CAPSULE PO SCH (20:23)
[2019-06-15] MEDS: SODIUM CHLORIDE FLUSH 10ML SYR IVF SCH (20:25)
[2019-06-15 20:36] VITALS: BP 149/74
[2019-06-15] MEDS ORDERED: TEMPLATE NON-FORMULARY MED. (Budesonide/Formoterol Fumarate (Symbicort 160-4.5 Mcg Inhaler PO SCH (21:00)
[2019-06-15] MEDS ORDERED: BUDESONIDE 0.5 MG/2 ML INHA NPPB SCH (21:00)
[2019-06-16] MEDS: morphine SULFATE 10 MG/ML, 1ML IVPush PRN ×3 (00:44→16:39)
[2019-06-16 01:43] VITALS: BP 162/85
[2019-06-16 06:02] LABS: ANION GAP 4 mmol/L (5-15); CHLORIDE 102 mmol/L (98-107)
[2019-06-16 06:03] LABS: MEAN CORPUSCULAR HEMOGLOBIN 28.7 pg (27.0-34.8); MEAN CORPUSCULAR HGB CONC 32.8 g/dL (32.4-35.8); MEAN CORPUSCULAR VOLUME 87.5 fL (80-100); MEAN PLATELET VOLUME 8.7 fL (7.4-10.4); PLATELET COUNT 338 x10^3/uL (130-400)
[2019-06-16 06:32] LABS: BASOPHILS % (AUTO) 0 % (0-1); EOSINOPHILS # (AUTO) 0.06 x10^3/uL (0-0.4); EOSINOPHILS % (AUTO) 0 % (1-7); LYMPHOCYTES # (AUTO) 0.84 x10^3/uL (1-3.4); LYMPHOCYTES % (AUTO) 5 % (22-44); MD SCAN; MONOCYTES # (AUTO) 0.83 x10^3/uL (0.2-0.8); MONOCYTES % (AUTO) 5 % (2-9); NEUTROPHILS # (AUTO) 16.69 x10^3/uL (1.8-6.8); NEUTROPHILS % (AUTO) 91 % (42-75)
[2019-06-16] MEDS: BUDESONIDE 0.5 MG/2 ML INHA INH SCH ×2 (06:55→19:56)
[2019-06-16] MEDS: ALBUTEROL/IPRATROPIUM 2.5MG/0.5MG, 3 ML NPPB SCH ×4 (06:55→19:55)
[2019-06-16] MEDS: INSULIN LISPRO 100 UNITS/ML, PEN SQ-INSULIN SCH ×4 (07:08→20:58)
[2019-06-16] MEDS ORDERED: FENTANYL PF 100 MCG/2ML ONE (07:18)
[2019-06-16] MEDS ORDERED: ONDANSETRON 2MG/ML, 2ML ONE (07:25)
[2019-06-16] MEDS ORDERED: PROPOFOL 10 MG/ML, 20ML ONE (07:25)
[2019-06-16] MEDS ORDERED: ROCURONIUM 10MG/ML,5ML ONE (07:25)
[2019-06-16] MEDS ORDERED: DEXAMETHASONE 4 MG/ML, 1ML ONE (07:25)
[2019-06-16] MEDS ORDERED: HYDROmorphone 2 MG/ML, 1ML IVPush PRN (08:30)
[2019-06-16] MEDS ORDERED: hydrALAzine 20 MG/ML, 1ML IV PRN (08:30)
[2019-06-16] MEDS ORDERED: ACETAMINOPHEN 325 MG TABLET PO PRN (08:30)
[2019-06-16] MEDS ORDERED: FENTANYL PF 100 MCG/2ML IV PRN (08:30)
[2019-06-16] MEDS ORDERED: LABETALOL 5MG/ML, 20ML IV PRN (08:30)
[2019-06-16] MEDS ORDERED: DIAZEPAM 5 MG/ML, 2ML IVPush PRN (08:30)
[2019-06-16] MEDS ORDERED: MEPERIDINE/PF 25MG/0.5ML IVPush PRN (08:30)
[2019-06-16] MEDS ORDERED: KETOROLAC 30 MG/1 ML IV PRN (08:30)
[2019-06-16] MEDS ORDERED: PROMETHAZINE 25 MG/ML, 1ML IV PRN (08:30)
[2019-06-16] MEDS ORDERED: OXYcodone 5 MG/5 ML ORAL.SOL UDC PO PRN (08:30)
[2019-06-16] MEDS ORDERED: ALBUTEROL SULFATE 2.5 MG/3 ML NPPB PRN (08:30)
[2019-06-16] MEDS ORDERED: HYDROmorphone 1 MG/ML, 1ML INJ ONE (08:33)
[2019-06-16] MEDS ORDERED: METOPROLOL 1 MG/ML, 5ML ONE (08:33)
[2019-06-16] MEDS ORDERED: [UNRECOGNIZED DRUG - OTHER] PO SCH (09:00)
[2019-06-16] MEDS ORDERED: OLMESARTAN PO SCH (09:00)
[2019-06-16] MEDS ORDERED: HYDROCHLOROTHIAZIDE PO SCH (09:00)
[2019-06-16] MEDS ORDERED: METOPROLOL 1 MG/ML, 5ML IVPush ONE (09:00)
[2019-06-16] MEDS ORDERED: ALBUTEROL SULFATE 2.5 MG/3 ML ONE (09:11)
[2019-06-16 09:44] VITALS: BP 153/78
[2019-06-16] MEDS: LOSARTAN 100 MG TAB PO SCH (09:48)
[2019-06-16] MEDS: HYDROCHLOROTHIAZIDE 25 MG TABLET PO SCH (09:48)
[2019-06-16] MEDS: FUROSEMIDE 20 MG TABLET PO SCH (09:49)
[2019-06-16] MEDS: SENNA/DOCUSATE TABLET PO SCH (09:49)
[2019-06-16] MEDS: AMLODIPINE 5 MG TABLET PO SCH (09:49)
[2019-06-16] MEDS: PANTOPRAZOLE 40MG TABLET PO SCH (09:49)
[2019-06-16] MEDS: SODIUM CHLORIDE FLUSH 10ML SYR IVF SCH ×2 (09:49→20:58)
[2019-06-16] MEDS: CEFAZOLIN PMX 1GM/50ML 50 ML IV SCH ×2 (10:04→19:26)
[2019-06-16 13:43] VITALS: BP 103/65
[2019-06-16] MEDS: BACLOFEN 10 MG TABLET PO PRN (19:25)
[2019-06-16 20:53] VITALS: BP 134/74
[2019-06-16] MEDS: ATORVASTATIN 10 MG TABLET PO SCH (20:58)
[2019-06-16] MEDS: GABAPENTIN 300 MG CAPSULE PO SCH (20:58)
[2019-06-17 02:27] VITALS: BP 117/71
[2019-06-17 05:32] LABS: BASOPHILS # (AUTO) 0.04 x10^3/uL (0-0.1); BASOPHILS % (AUTO) 0 % (0-1); EOSINOPHILS # (AUTO) 0.06 x10^3/uL (0-0.4); EOSINOPHILS % (AUTO) 0 % (1-7); LYMPHOCYTES # (AUTO) 0.76 x10^3/uL (1-3.4); LYMPHOCYTES % (AUTO) 6 % (22-44); MD NO; MEAN CORPUSCULAR HEMOGLOBIN 28.4 pg (27.0-34.8); MEAN CORPUSCULAR HGB CONC 32.2 g/dL (32.4-35.8); MEAN PLATELET VOLUME 8.5 fL (7.4-10.4); MONOCYTES # (AUTO) 0.79 x10^3/uL (0.2-0.8); MONOCYTES % (AUTO) 6 % (2-9); NEUTROPHILS # (AUTO) 12.17 x10^3/uL (1.8-6.8); NEUTROPHILS % (AUTO) 88 % (42-75); PLATELET COUNT 282 x10^3/uL (130-400); RED BLOOD COUNT 4.35 x10^6/uL (3.82-5.3); RED CELL DISTRIBUTION WIDTH 14.7 % (9.6-15.2)
[2019-06-17 05:39] LABS: ANION GAP 3 mmol/L (5-15); CALCIUM 8.8 mg/dL (8.5-10.1); CHLORIDE 100 mmol/L (98-107)
[2019-06-17 05:43] LABS: CREATININE 0.39 mg/dL (0.55-1.02)
[2019-06-17] MEDS: ALBUTEROL/IPRATROPIUM 2.5MG/0.5MG, 3 ML NPPB SCH ×4 (07:00→19:25)
[2019-06-17] MEDS: BUDESONIDE 0.5 MG/2 ML INHA INH SCH ×2 (07:13→19:25)
[2019-06-17] MEDS: ENOXAPARIN 40 MG/0.4 ML SQ SCH (07:35)
[2019-06-17] MEDS: INSULIN LISPRO 100 UNITS/ML, PEN SQ-INSULIN SCH ×4 (07:36→22:32)
[2019-06-17] MEDS: morphine SULFATE 10 MG/ML, 1ML IVPush PRN ×3 (07:36→14:59)
[2019-06-17] MEDS: AMLODIPINE 5 MG TABLET PO SCH (07:36)
[2019-06-17] MEDS: SODIUM CHLORIDE FLUSH 10ML SYR IVF SCH ×2 (07:37→22:33)
[2019-06-17] MEDS: LOSARTAN 100 MG TAB PO SCH (07:37)
[2019-06-17] MEDS: PANTOPRAZOLE 40MG TABLET PO SCH (07:37)
[2019-06-17] MEDS: SENNA/DOCUSATE TABLET PO SCH (07:37)
[2019-06-17] MEDS: FUROSEMIDE 20 MG TABLET PO SCH (07:37)
[2019-06-17] MEDS: HYDROCHLOROTHIAZIDE 25 MG TABLET PO SCH (07:37)
[2019-06-17 09:04] VITALS: BP 113/62
[2019-06-17 12:36] VITALS: BP 113/70
[2019-06-17 19:34] VITALS: BP 118/64
[2019-06-17 22:28] VITALS: BP 146/70
[2019-06-17] MEDS: GABAPENTIN 300 MG CAPSULE PO SCH (22:32)
[2019-06-17] MEDS: ATORVASTATIN 10 MG TABLET PO SCH (22:32)
[2019-06-17] MEDS: PROMETHAZINE 25 MG/ML, 1ML IM PRN (23:05)
[2019-06-18 01:53] VITALS: BP 109/64
[2019-06-18] MEDS: ALBUTEROL/IPRATROPIUM 2.5MG/0.5MG, 3 ML NPPB SCH ×4 (06:45→20:00)
[2019-06-18] MEDS: BUDESONIDE 0.5 MG/2 ML INHA INH SCH ×2 (06:45→20:19)
[2019-06-18] MEDS: INSULIN LISPRO 100 UNITS/ML, PEN SQ-INSULIN SCH ×4 (08:38→21:25)
[2019-06-18] MEDS: ENOXAPARIN 40 MG/0.4 ML SQ SCH (08:39)
[2019-06-18] MEDS: LOSARTAN 100 MG TAB PO SCH (08:39)
[2019-06-18] MEDS: FUROSEMIDE 20 MG TABLET PO SCH (08:41)
[2019-06-18] MEDS: HYDROCHLOROTHIAZIDE 25 MG TABLET PO SCH (08:41)
[2019-06-18] MEDS: SENNA/DOCUSATE TABLET PO SCH (08:41)
[2019-06-18] MEDS: PANTOPRAZOLE 40MG TABLET PO SCH (08:41)
[2019-06-18 08:46] VITALS: BP 117/55
[2019-06-18] MEDS: SODIUM CHLORIDE FLUSH 10ML SYR IVF SCH ×2 (08:46→21:25)
[2019-06-18] MEDS: morphine SULFATE 10 MG/ML, 1ML IVPush PRN (08:52)
[2019-06-18] MEDS ORDERED: OXYC-307 PO (09:33)
[2019-06-18] MEDS ORDERED: ASPI-650 PO (10:41)
[2019-06-18 13:50] VITALS: BP 135/75
[2019-06-18 18:51] VITALS: BP 157/76
[2019-06-18 21:22] VITALS: BP 139/77
[2019-06-18] MEDS: GABAPENTIN 300 MG CAPSULE PO SCH (21:24)
[2019-06-18] MEDS: ATORVASTATIN 10 MG TABLET PO SCH (21:24)
[2019-06-18] MEDS: AMLODIPINE 5 MG TABLET PO SCH (21:24)
[2019-06-19 00:36] VITALS: BP 124/76
[2019-06-19 06:27] VITALS: BP 145/73
[2019-06-19] MEDS: ALBUTEROL/IPRATROPIUM 2.5MG/0.5MG, 3 ML NPPB SCH ×3 (06:30→15:05)
[2019-06-19] MEDS: PANTOPRAZOLE 40MG TABLET PO SCH (07:54)
[2019-06-19] MEDS: INSULIN LISPRO 100 UNITS/ML, PEN SQ-INSULIN SCH ×3 (07:54→16:22)
[2019-06-19] MEDS: ENOXAPARIN 40 MG/0.4 ML SQ SCH (07:54)
[2019-06-19] MEDS: AMLODIPINE 5 MG TABLET PO SCH (07:54)
[2019-06-19] MEDS: HYDROCHLOROTHIAZIDE 25 MG TABLET PO SCH (07:54)
[2019-06-19] MEDS: SENNA/DOCUSATE TABLET PO SCH (07:54)
[2019-06-19] MEDS: LOSARTAN 100 MG TAB PO SCH (07:55)
[2019-06-19] MEDS: FUROSEMIDE 20 MG TABLET PO SCH (07:55)
[2019-06-19] MEDS: SODIUM CHLORIDE FLUSH 10ML SYR IVF SCH (07:57)
[2019-06-19] MEDS: BUDESONIDE 0.5 MG/2 ML INHA INH SCH (09:00)
[2019-06-19] MEDS ORDERED: BISACODYL 10 MG SUPP PR SCH (11:30)
[2019-06-19 12:00] VITALS: BP 124/62
== END 2019-06-19 17:50 | DRG 480 ==
LOC: ED 09:07 → SUATTDRO 09:18 → EDIP 09:27 → 4EST 13:45
PROVIDERS: ADMIT Hospitalist; ATTEND Family Medicine
PROC: 0QS704Z Reposition Left Upper Femur with Internal Fixation Device, Open Approach (ICD-10-PCS; principal; 2019-06-16 07:30)
DX: S72.142A Displaced intertrochanteric fracture of left femur, initial encounter for closed fracture (principal); J96.00 Acute respiratory failure, unspecified whether with hypoxia or hypercapnia; J96.20 Acute and chronic respiratory failure, unspecified whether with hypoxia or hypercapnia; F13.20 Sedative, hypnotic or anxiolytic dependence, uncomplicated; J44.9 Chronic obstructive pulmonary disease, unspecified; I10 Essential (primary) hypertension; E11.9 Type 2 diabetes mellitus without complications; E78.5 Hyperlipidemia, unspecified; F41.9 Anxiety disorder, unspecified; E66.9 Obesity, unspecified; R00.0 Tachycardia, unspecified; W01.0XXA Fall on same level from slipping, tripping and stumbling without subsequent striking against object, initial encounter; I11.0 Hypertensive heart disease with heart failure; I50.9 Heart failure, unspecified; Z66 Do not resuscitate; D72.829 Elevated white blood cell count, unspecified; E87.6 Hypokalemia; Y93.01 Activity, walking, marching and hiking; Z88.1 Allergy status to other antibiotic agents; Z88.5 Allergy status to narcotic agent; Z88.8 Allergy status to other drugs, medicaments and biological substances; Z80.1 Family history of malignant neoplasm of trachea, bronchus and lung; Z82.49 Family history of ischemic heart disease and other diseases of the circulatory system; Z87.891 Personal history of nicotine dependence; Z90.710 Acquired absence of both cervix and uterus; Z90.89 Acquired absence of other organs; Z99.81 Dependence on supplemental oxygen; Y92.89 Other specified places as the place of occurrence of the external cause; Y99.8 Other external cause status; Z68.32 Body mass index [BMI] 32.0-32.9, adult
CPT/HCPCS: 36415; 51702; 71045; 76000; 80048; 82040; 82962; 83036; 85025; 85610; 85730; 93005; 93306; 93970; 94640; 96372; 96374; 96375; 96376; 99285; C1713; G0378; J0690; J1100; J1170; J1644; J1650; J2405; J2550; J2704; J3010; J7613; J7626; J1815; J2270; J7512

== ENCOUNTER 2019-07-09 15:59 | Inpatient (IN) | payer MEDICARE ==
[~2019-07-09] VITALS: Ht 147.3 cm; Wt 62.2 kg
[~2019-07-09 15:59] MED LIST changes: +AMLO10TA8 PO; +ASPI-650 PO; +GABA300C10 PO; +OXYC-307 PO; +POTA10CA PO
[2019-07-09] MEDS ORDERED: DILTIAZEM 5 MG/ML, 5ML ONE (16:15)
[2019-07-09] MEDS: PLEASE ENTER HEIGHT AND WEIGHT MC SCH ×2 (16:26→18:34)
[2019-07-09] MEDS ORDERED: SODIUM CHLORIDE FLUSH 10ML SYR IVF ONE (16:30)
[2019-07-09] MEDS ORDERED: DILTIAZEM 125 MG in SODIUM CHLORIDE 0.9% 100 ML IV SCH (16:46)
[2019-07-09 16:55] LABS: MEAN CORPUSCULAR HEMOGLOBIN 28.2 pg (27.0-34.8); MEAN CORPUSCULAR HGB CONC 32.5 g/dL (32.4-35.8); MEAN CORPUSCULAR VOLUME 86.6 fL (80-100); MEAN PLATELET VOLUME 8.5 fL (7.4-10.4); PLATELET COUNT 425 x10^3/uL (130-400); RED BLOOD COUNT 4.55 x10^6/uL (3.82-5.3); RED CELL DISTRIBUTION WIDTH 15.6 % (9.6-15.2)
[2019-07-09 17:01] LABS: ALBUMIN 3.2 g/dL (3.4-5.0); ANION GAP 9 mmol/L (5-15); CHLORIDE 101 mmol/L (98-107)
[2019-07-09 17:08] LABS: ALANINE AMINOTRANSFERASE 37 U/L (12-78); ALKALINE PHOSPHATASE 189 U/L (45-117); BILIRUBIN,TOTAL 0.3 mg/dL (0.2-1.0); CALCIUM 9.4 mg/dL (8.5-10.1); TOTAL PROTEIN 7.1 g/dL (6.4-8.2); TROPONIN I 0.034 ng/mL (0.000-0.045)
[2019-07-09] MEDS ORDERED: CEFTRIAXONE PMX 1GM/50ML 50 ML ONE (17:23)
[2019-07-09] MEDS ORDERED: AZITHROMYCIN 500 MG in SODIUM CHLORIDE 0.9% 250 ML IV ONE (17:30)
[2019-07-09] MEDS ORDERED: CEFTRIAXONE PMX 1GM/50ML 50 ML IV ONE (17:30)
[2019-07-09 17:31] LABS: MD YES
[2019-07-09 17:38] LABS: BAND#(MANUAL) 1.19 x10^3/uL; BANDS%(MANUAL) 9 % (0-7); LYMPH#(MANUAL) 1.19 x10^3/uL (1-3.4); LYMPHS% (MANUAL) 9 % (22-44); MONOS#(MANUAL) 0.26 x10^3/uL (0.3-2.7); MONOS% (MANUAL) 2 % (2-9); MYELOCYTES# (MANUAL) 0.13 x10^3/uL (0-0); MYELOCYTES% (MANUAL) 1 % (0-0); SEG#(MANUAL) 10.43 x10^3/uL (1.8-6.8); SEGS% (MANUAL) 79 % (42-75)
[2019-07-09 17:39] LABS: <PLATELET ESTIMATE> INCREASED; <PLT MORPHOLOGY> NORMAL PLT MORPH; <RBC MORPHOLOGY> NORMAL
--- NOTE | 2019-07-09 18:10 | NUR ---
PT ASSISTED ON BED [place]. PT BECOMING QUITE ANXIOUS. PT PLACED IN SEATED POSITION. DR DONGIED
[2019-07-09] MEDS ORDERED: LORazepam 2 MG/ML, 1ML ONE (18:29)
[2019-07-09] MEDS ORDERED: SODIUM CHLORIDE FLUSH 10ML SYR IVF PRN (18:30)
[2019-07-09] MEDS ORDERED: LORazepam 2 MG/ML, 1ML IVPush ONE (18:30)
--- NOTE | 2019-07-09 18:50 | NUR ---
PT MEDICATE PER JUN. O2 DOWN TO 3 L. PT RESTING COMFORTABLY. MONITOR IN PLACE.
[2019-07-09] MEDS ORDERED: ACETAMINOPHEN 325 MG TABLET PO PRN (19:30)
[2019-07-09] MEDS ORDERED: ONDANSETRON 2MG/ML, 2ML IVPush PRN (19:30)
--- NOTE | 2019-07-09 19:33 | NUR ---
PT RESTING WITH EYES CLOSED. MONITOR IN PLACE.
[2019-07-09] MEDS ORDERED: SODIUM CHLORIDE 0.9% 1,000ML IVBOLUS ONE (20:00)
[2019-07-09] MEDS ORDERED: OXYcodone/APAP 5/325MG TABLET ONE (20:23)
[2019-07-09] MEDS: GABAPENTIN 300 MG CAPSULE PO SCH (20:58)
[2019-07-09] MEDS: OXYcodone/APAP 10/325MG TABLET PO SCH (20:58)
[2019-07-09] MEDS: PRAVASTATIN 40 MG TABLET PO SCH (20:58)
[2019-07-09] MEDS: ASPIRIN 325 MG TABLET EC PO SCH (20:58)
[2019-07-09] MEDS: ALBUTEROL SULFATE 200 PUFFS/8.5 GR INH INH SCH (21:00)
[2019-07-09] MEDS: INSULIN LISPRO 100 UNITS/ML, PEN SQ-INSULIN SCH (21:42)
[2019-07-10] MEDS: ALBUTEROL SULFATE 200 PUFFS/8.5 GR INH INH SCH ×4 (03:00→22:42)
[2019-07-10 03:14] VITALS: BP 122/56
[2019-07-10 05:10] LABS: MEAN CORPUSCULAR HEMOGLOBIN 28.8 pg (27.0-34.8); MEAN CORPUSCULAR VOLUME 87.4 fL (80-100); MEAN PLATELET VOLUME 8.3 fL (7.4-10.4); PLATELET COUNT 390 x10^3/uL (130-400); RED BLOOD COUNT 4.03 x10^6/uL (3.82-5.3); RED CELL DISTRIBUTION WIDTH 15.5 % (9.6-15.2)
[2019-07-10 05:11] LABS: CALCIUM 8.9 mg/dL (8.5-10.1); CHLORIDE 104 mmol/L (98-107); CREATININE 0.37 mg/dL (0.55-1.02)
[2019-07-10 05:15] LABS: TROPONIN I 0.054 ng/mL (0.000-0.045)
[2019-07-10 05:21] LABS: ANION GAP 3 mmol/L (5-15)
[2019-07-10 05:40] LABS: MD YES
[2019-07-10 05:42] LABS: <PLATELET ESTIMATE> ADEQUATE; <PLT MORPHOLOGY> NORMAL PLT MORPH; <RBC MORPHOLOGY> NORMAL; BAND#(MANUAL) 0.41 x10^3/uL; BANDS%(MANUAL) 4 % (0-7); LYMPH#(MANUAL) 0.62 x10^3/uL (1-3.4); LYMPHS% (MANUAL) 6 % (22-44); MONOS% (MANUAL) 1 % (2-9); SEG#(MANUAL) 9.17 x10^3/uL (1.8-6.8); SEGS% (MANUAL) 89 % (42-75)
[2019-07-10 08:08] VITALS: BP 178/59
[2019-07-10] MEDS ORDERED: AZITHROMYCIN 500 MG TABLET ONE (08:25)
[2019-07-10] MEDS: AZITHROMYCIN 500 MG TABLET PO SCH (08:41)
[2019-07-10] MEDS ORDERED: FUROSEMIDE 20 MG TABLET PO SCH (09:00)
[2019-07-10] MEDS ORDERED: PANTOPRAZOLE 40MG TABLET PO SCH (09:00)
[2019-07-10] MEDS ORDERED: AMLODIPINE 5 MG TABLET PO SCH (09:00)
[2019-07-10] MEDS: OXYcodone/APAP 10/325MG TABLET PO SCH ×3 (09:18→22:48)
[2019-07-10] MEDS: INSULIN LISPRO 100 UNITS/ML, PEN SQ-INSULIN SCH ×3 (10:03→15:51)
[2019-07-10] MEDS: AMLODIPINE 10 MG TAB PO SCH (10:04)
[2019-07-10] MEDS: VALSARTAN 160 MG TABLET PO SCH (10:04)
[2019-07-10] MEDS: ASPIRIN 325 MG TABLET EC PO SCH (10:05)
[2019-07-10] MEDS ORDERED: DILTIAZEM 125 MG in SODIUM CHLORIDE 0.9% 100 ML IV SCH (10:30)
[2019-07-10 12:02] VITALS: BP 151/68
[2019-07-10] MEDS ORDERED: ALBUTEROL/IPRATROPIUM 2.5MG/0.5MG, 3 ML ONE (13:39)
[2019-07-10] MEDS: ALBUTEROL/IPRATROPIUM 2.5MG/0.5MG, 3 ML HHN SCH ×2 (13:45→23:19)
[2019-07-10] MEDS ORDERED: METOPROLOL 1 MG/ML, 5ML IVPush ONE (15:00)
[2019-07-10 15:32] VITALS: BP 163/72
[2019-07-10] MEDS: ENOXAPARIN 40 MG/0.4 ML SQ SCH (15:33)
[2019-07-10] MEDS ORDERED: CEFTRIAXONE PMX 1GM/50ML 50 ML ONE (15:58)
[2019-07-10] MEDS ORDERED: PHENYLEPHRINE 50 MG in SODIUM CHLORIDE 0.9% 245 ML IV PRN (21:30)
[2019-07-10] MEDS ORDERED: PROPOFOL 100 ML IV ONE (21:48)
[2019-07-10] MEDS ORDERED: ASPIRIN 325 MG TABLET NG SCH (22:43)
[2019-07-10] MEDS ORDERED: PROPOFOL 100 ML IV PRN (23:00)
[2019-07-10] MEDS: CEFTRIAXONE PMX 1GM/50ML 50 ML IV SCH (23:22)
[2019-07-10] MEDS: METOPROLOL TARTRATE 25 MG TAB PO SCH (23:22)
[2019-07-10] MEDS: PRAVASTATIN 40 MG TABLET PO SCH (23:23)
[2019-07-10] MEDS: GABAPENTIN 300 MG CAPSULE PO SCH (23:23)
[2019-07-11] MEDS: INSULIN LISPRO 100 UNITS/ML, PEN SQ-INSULIN SCH ×5 (00:59→21:14)
[2019-07-11 01:29] LABS: MICROSCOPIC INDICATED
[2019-07-11] MEDS: ALBUTEROL/IPRATROPIUM 2.5MG/0.5MG, 3 ML INLINE SCH ×6 (02:45→22:26)
[2019-07-11] MEDS: DILTIAZEM 125 MG in SODIUM CHLORIDE 0.9% 100 ML IV PRN ×2 (04:46→13:54)
[2019-07-11 05:14] LABS: MEAN CORPUSCULAR HEMOGLOBIN 28.8 pg (27.0-34.8); MEAN CORPUSCULAR HGB CONC 32.9 g/dL (32.4-35.8); MEAN CORPUSCULAR VOLUME 87.4 fL (80-100); MEAN PLATELET VOLUME 8.4 fL (7.4-10.4); PLATELET COUNT 413 x10^3/uL (130-400); RED CELL DISTRIBUTION WIDTH 15.7 % (9.6-15.2)
[2019-07-11 05:16] LABS: ALANINE AMINOTRANSFERASE 46 U/L (12-78); ALBUMIN 2.6 g/dL (3.4-5.0); ANION GAP 6 mmol/L (5-15); CALCIUM 8.6 mg/dL (8.5-10.1); CHLORIDE 105 mmol/L (98-107); CREATININE 0.38 mg/dL (0.55-1.02)
[2019-07-11 05:18] LABS: ALKALINE PHOSPHATASE 145 U/L (45-117); BILIRUBIN,TOTAL 0.1 mg/dL (0.2-1.0); TOTAL PROTEIN 5.8 g/dL (6.4-8.2)
[2019-07-11 05:49] LABS: BASOPHILS # (AUTO) 0.01 x10^3/uL (0-0.1); BASOPHILS % (AUTO) 0 % (0-1); EOSINOPHILS # (AUTO) 0.01 x10^3/uL (0-0.4); EOSINOPHILS % (AUTO) 0 % (1-7); LYMPHOCYTES # (AUTO) 0.78 x10^3/uL (1-3.4); LYMPHOCYTES % (AUTO) 6 % (22-44); MD SCAN; MONOCYTES # (AUTO) 0.14 x10^3/uL (0.2-0.8); MONOCYTES % (AUTO) 1 % (2-9); NEUTROPHILS # (AUTO) 11.85 x10^3/uL (1.8-6.8); NEUTROPHILS % (AUTO) 93 % (42-75)
[2019-07-11] MEDS: METOPROLOL TARTRATE 25 MG TAB PO SCH ×4 (06:17→21:11)
[2019-07-11] MEDS ORDERED: PHENYLEPHRINE 50 MG in SODIUM CHLORIDE 0.9% 245 ML IV PRN (07:30)
[2019-07-11] MEDS ORDERED: LIDOCAINE-MPF 1%, 2ML ENDO PRN (08:00)
[2019-07-11] MEDS ORDERED: PHARMACY MAY ADJ FOR RENAL FX MC SCH (08:00)
[2019-07-11] MEDS ORDERED: ASPIRIN 81 MG TABLET CHEW ONE (09:57)
[2019-07-11] MEDS: FAMOTIDINE 20 MG/2 ML IV SCH (10:19)
[2019-07-11] MEDS: methylPREDNISolone SOD SUCC 40 MG/ML IV SCH ×3 (10:19→23:47)
[2019-07-11] MEDS: OXYcodone/APAP 10/325MG TABLET PO SCH ×3 (10:20→21:00)
[2019-07-11] MEDS: ASPIRIN 81 MG TABLET CHEW PO SCH (10:20)
[2019-07-11] MEDS: AZITHROMYCIN 500 MG TABLET PO SCH (10:20)
[2019-07-11] MEDS: VALSARTAN 160 MG TABLET PO SCH (10:20)
[2019-07-11] MEDS: AMLODIPINE 10 MG TAB PO SCH (10:21)
[2019-07-11] MEDS: ENOXAPARIN 40 MG/0.4 ML SQ SCH (10:22)
[2019-07-11] MEDS ORDERED: NOREPINEPHRINE 8 MG in SODIUM CHLORIDE 0.9% 242 ML IV PRN (12:00)
[2019-07-11] MEDS: MIDAZOLAM HCL 50 MG in SODIUM CHLORIDE 0.9% 40 ML IV PRN (13:17)
--- NOTE | 2019-07-11 13:24 | NUR ---
TF GOAL: w/ propofol: VITAL HIGH PROTEIN @ 40ML/HR off propofol: 45ML/HR
[2019-07-11] MEDS: SODIUM CHLORIDE 0.9% 500 ML IV SCH ×2 (13:38→14:00)
[2019-07-11] MEDS: PRAVASTATIN 40 MG TABLET PO SCH (21:00)
[2019-07-11] MEDS ORDERED: PRAVASTATIN 20 MG TABLET ONE ×2 (21:02→21:15)
[2019-07-11] MEDS: CEFTRIAXONE PMX 1GM/50ML 50 ML IV SCH (21:10)
[2019-07-11] MEDS: GABAPENTIN 300 MG CAPSULE PO SCH (21:10)
[2019-07-12] MEDS: DILTIAZEM 125 MG in SODIUM CHLORIDE 0.9% 100 ML IV PRN (00:27)
[2019-07-12] MEDS: MIDAZOLAM HCL 50 MG in SODIUM CHLORIDE 0.9% 40 ML IV PRN (01:56)
[2019-07-12] MEDS: ALBUTEROL/IPRATROPIUM 2.5MG/0.5MG, 3 ML INLINE SCH (02:15)
[2019-07-12] MEDS: INSULIN LISPRO 100 UNITS/ML, PEN SQ-INSULIN SCH ×4 (02:55→20:45)
[2019-07-12 04:10] LABS: ANION GAP 8 mmol/L (5-15); CALCIUM 8.7 mg/dL (8.5-10.1); CHLORIDE 107 mmol/L (98-107); CREATININE 0.35 mg/dL (0.55-1.02)
[2019-07-12 04:15] LABS: BASOPHILS % (AUTO) 0 % (0-1); EOSINOPHILS # (AUTO) 0.01 x10^3/uL (0-0.4); EOSINOPHILS % (AUTO) 0 % (1-7); LYMPHOCYTES # (AUTO) 0.43 x10^3/uL (1-3.4); LYMPHOCYTES % (AUTO) 5 % (22-44); MD NO; MEAN CORPUSCULAR HEMOGLOBIN 28.3 pg (27.0-34.8); MEAN CORPUSCULAR HGB CONC 32.5 g/dL (32.4-35.8); MEAN CORPUSCULAR VOLUME 87.2 fL (80-100); MEAN PLATELET VOLUME 8.2 fL (7.4-10.4); MONOCYTES # (AUTO) 0.23 x10^3/uL (0.2-0.8); MONOCYTES % (AUTO) 3 % (2-9); NEUTROPHILS # (AUTO) 8.59 x10^3/uL (1.8-6.8); NEUTROPHILS % (AUTO) 93 % (42-75); PLATELET COUNT 358 x10^3/uL (130-400); RED BLOOD COUNT 3.74 x10^6/uL (3.82-5.3); RED CELL DISTRIBUTION WIDTH 15.3 % (9.6-15.2)
[2019-07-12] MEDS: METOPROLOL TARTRATE 25 MG TAB PO SCH (05:44)
[2019-07-12] MEDS: methylPREDNISolone SOD SUCC 40 MG/ML IV SCH ×3 (08:22→23:32)
[2019-07-12] MEDS: ASPIRIN 81 MG TABLET CHEW PO SCH (08:22)
[2019-07-12] MEDS: FAMOTIDINE 20 MG/2 ML IV SCH (08:22)
[2019-07-12] MEDS: METOPROLOL TARTRATE 50 MG TAB PO SCH ×3 (08:22→23:32)
[2019-07-12] MEDS: AZITHROMYCIN 500 MG TABLET PO SCH (08:22)
[2019-07-12] MEDS ORDERED: OXYcodone/APAP 10/325MG TABLET PO PRN (09:00)
[2019-07-12] MEDS: ENOXAPARIN 40 MG/0.4 ML SQ SCH (11:41)
[2019-07-12] MEDS ORDERED: ALBUTEROL SULFATE 2.5 MG/3 ML ONE (12:16)
[2019-07-12] MEDS: ALBUTEROL/IPRATROPIUM 2.5MG/0.5MG, 3 ML NPPB SCH ×3 (14:00→22:40)
[2019-07-12] MEDS: GABAPENTIN 300 MG CAPSULE PO SCH (20:45)
[2019-07-12] MEDS: PRAVASTATIN 40 MG TABLET PO SCH (20:45)
[2019-07-12] MEDS: CEFTRIAXONE PMX 1GM/50ML 50 ML IV SCH (20:45)
[2019-07-12] MEDS: BUDESONIDE 0.5 MG/2 ML INHA INH SCH (22:40)
[2019-07-13] MEDS: INSULIN LISPRO 100 UNITS/ML, PEN SQ-INSULIN SCH ×4 (03:03→20:35)
[2019-07-13 04:33] LABS: BASOPHILS # (AUTO) 0.04 x10^3/uL (0-0.1); BASOPHILS % (AUTO) 0 % (0-1); EOSINOPHILS % (AUTO) 0 % (1-7); LYMPHOCYTES # (AUTO) 0.45 x10^3/uL (1-3.4); LYMPHOCYTES % (AUTO) 4 % (22-44); MD NO; MEAN CORPUSCULAR HEMOGLOBIN 28.6 pg (27.0-34.8); MEAN CORPUSCULAR HGB CONC 32.8 g/dL (32.4-35.8); MEAN CORPUSCULAR VOLUME 87.2 fL (80-100); MEAN PLATELET VOLUME 7.9 fL (7.4-10.4); MONOCYTES # (AUTO) 0.37 x10^3/uL (0.2-0.8); MONOCYTES % (AUTO) 3 % (2-9); NEUTROPHILS # (AUTO) 12.21 x10^3/uL (1.8-6.8); NEUTROPHILS % (AUTO) 93 % (42-75); PLATELET COUNT 437 x10^3/uL (130-400); RED BLOOD COUNT 4.31 x10^6/uL (3.82-5.3); RED CELL DISTRIBUTION WIDTH 14.5 % (9.6-15.2)
[2019-07-13 04:42] LABS: ANION GAP 3 mmol/L (5-15); CALCIUM 9.1 mg/dL (8.5-10.1); CHLORIDE 103 mmol/L (98-107); CREATININE 0.31 mg/dL (0.55-1.02)
[2019-07-13] MEDS: ALBUTEROL/IPRATROPIUM 2.5MG/0.5MG, 3 ML NPPB SCH ×5 (06:00→22:00)
[2019-07-13] MEDS ORDERED: POTASSIUM CHLORIDE 10% 40 MEQ/30 ML UDC ONE (06:20)
[2019-07-13] MEDS ORDERED: POTASSIUM CHLORIDE 20 MEQ TAB.ER.PRT PO ONE (06:30)
[2019-07-13] MEDS: methylPREDNISolone SOD SUCC 40 MG/ML IV SCH ×2 (08:26→15:36)
[2019-07-13] MEDS: METOPROLOL TARTRATE 50 MG TAB PO SCH ×2 (08:27→15:36)
[2019-07-13] MEDS: AZITHROMYCIN 500 MG TABLET PO SCH (08:27)
[2019-07-13] MEDS: ASPIRIN 81 MG TABLET CHEW PO SCH (08:27)
[2019-07-13] MEDS: FAMOTIDINE 40 MG/5 ML ORAL SUSP NG SCH (08:30)
[2019-07-13] MEDS: BUDESONIDE 0.5 MG/2 ML INHA INH SCH ×2 (09:00→18:27)
[2019-07-13] MEDS: INSULIN GLARGINE 100 UNITS/ML, PEN SQ-INSULIN SCH ×2 (09:03→20:36)
[2019-07-13] MEDS: ENOXAPARIN 40 MG/0.4 ML SQ SCH (11:58)
[2019-07-13] MEDS: GABAPENTIN 300 MG CAPSULE PO SCH (20:31)
[2019-07-13] MEDS: PRAVASTATIN 40 MG TABLET PO SCH (20:31)
[2019-07-13] MEDS: CEFTRIAXONE PMX 1GM/50ML 50 ML IV SCH (20:33)
[2019-07-14] MEDS: methylPREDNISolone SOD SUCC 40 MG/ML IV SCH ×2 (00:09→08:39)
[2019-07-14] MEDS: METOPROLOL TARTRATE 50 MG TAB PO SCH ×2 (00:09→08:40)
[2019-07-14] MEDS: INSULIN LISPRO 100 UNITS/ML, PEN SQ-INSULIN SCH ×2 (02:14→09:05)
[2019-07-14 04:35] LABS: BASOPHILS % (AUTO) 0 % (0-1); EOSINOPHILS % (AUTO) 0 % (1-7); LYMPHOCYTES # (AUTO) 0.41 x10^3/uL (1-3.4); LYMPHOCYTES % (AUTO) 3 % (22-44); MD NO; MEAN CORPUSCULAR HEMOGLOBIN 28.7 pg (27.0-34.8); MEAN CORPUSCULAR HGB CONC 32.9 g/dL (32.4-35.8); MEAN CORPUSCULAR VOLUME 87.2 fL (80-100); MEAN PLATELET VOLUME 8.2 fL (7.4-10.4); MONOCYTES # (AUTO) 0.35 x10^3/uL (0.2-0.8); MONOCYTES % (AUTO) 3 % (2-9); NEUTROPHILS # (AUTO) 12.52 x10^3/uL (1.8-6.8); NEUTROPHILS % (AUTO) 94 % (42-75); PLATELET COUNT 461 x10^3/uL (130-400); RED BLOOD COUNT 4.46 x10^6/uL (3.82-5.3); RED CELL DISTRIBUTION WIDTH 14.5 % (9.6-15.2)
[2019-07-14 04:48] LABS: CALCIUM 9.5 mg/dL (8.5-10.1); CHLORIDE 99 mmol/L (98-107)
[2019-07-14 04:51] LABS: ANION GAP 2 mmol/L (5-15)
[2019-07-14] MEDS: ALBUTEROL/IPRATROPIUM 2.5MG/0.5MG, 3 ML NPPB SCH ×2 (06:00→10:00)
[2019-07-14] MEDS: BUDESONIDE 0.5 MG/2 ML INHA INH SCH (06:53)
[2019-07-14] MEDS: FAMOTIDINE 40 MG/5 ML ORAL SUSP NG SCH (08:39)
[2019-07-14] MEDS: ASPIRIN 81 MG TABLET CHEW PO SCH (08:40)
[2019-07-14] MEDS: AZITHROMYCIN 500 MG TABLET PO SCH (08:40)
[2019-07-14] MEDS: INSULIN GLARGINE 100 UNITS/ML, PEN SQ-INSULIN SCH (09:05)
[2019-07-14] MEDS ORDERED: ASPI-515 PO (10:12)
[2019-07-14] MEDS ORDERED: CEFD300C37 PO (10:12)
[2019-07-14] MEDS: ENOXAPARIN 40 MG/0.4 ML SQ SCH (11:00)
== END 2019-07-14 13:16 | disposition hospice, home (50) | DRG 871 ==
LOC: ED 17:13 → EDIP 18:12 → 3WST 07-10 16:29 → ICU 07-10 20:45 → CCU 07-11 15:31
PROVIDERS: ADMIT Internal Medicine; ATTEND Internal Medicine
PROC: 5A1935Z Respiratory Ventilation, Less than 24 Consecutive Hours (ICD-10-PCS; principal; 2019-07-10)
PROC: 0BH17EZ Insertion of Endotracheal Airway into Trachea, Via Natural or Artificial Opening (ICD-10-PCS; 2019-07-10)
PROC: 0T9B70Z Drainage of Bladder with Drainage Device, Via Natural or Artificial Opening (ICD-10-PCS; 2019-07-11)
PROC: 02H633Z Insertion of Infusion Device into Right Atrium, Percutaneous Approach (ICD-10-PCS; 2019-07-12)
DX: A41.9 Sepsis, unspecified organism (principal); J15.9 Unspecified bacterial pneumonia; J96.21 Acute and chronic respiratory failure with hypoxia; E87.2 Acidosis; Z99.11 Dependence on respirator [ventilator] status; I50.32 Chronic diastolic (congestive) heart failure; J44.0 Chronic obstructive pulmonary disease with (acute) lower respiratory infection; J44.1 Chronic obstructive pulmonary disease with (acute) exacerbation; E11.9 Type 2 diabetes mellitus without complications; E78.5 Hyperlipidemia, unspecified; F41.9 Anxiety disorder, unspecified; I11.0 Hypertensive heart disease with heart failure; I48.91 Unspecified atrial fibrillation; D47.3 Essential (hemorrhagic) thrombocythemia; Z51.5 Encounter for palliative care; Z78.9 Other specified health status; Z79.52 Long term (current) use of systemic steroids; Z79.84 Long term (current) use of oral hypoglycemic drugs; Z79.899 Other long term (current) drug therapy; Z80.1 Family history of malignant neoplasm of trachea, bronchus and lung; Z82.49 Family history of ischemic heart disease and other diseases of the circulatory system; Z87.891 Personal history of nicotine dependence; Z90.710 Acquired absence of both cervix and uterus; Z99.81 Dependence on supplemental oxygen; Z88.1 Allergy status to other antibiotic agents; Z88.5 Allergy status to narcotic agent; Z88.6 Allergy status to analgesic agent; Z88.8 Allergy status to other drugs, medicaments and biological substances; Z20.818 Contact with and (suspected) exposure to other bacterial communicable diseases
CPT/HCPCS: 36415; 36600; 71045; 80048; 80053; 81001; 82803; 82962; 83605; 83735; 83880; 84145; 84478; 84484; 85025; 87040; 87070; 87077; 87081; 87186; 87205; 93005; 94002; 94003; 94150; 94640; 96374; 96375; G0378; J0456; J0696; J1650; J2250; J2704; J7626; J1815; J2060; J2920; J3490; J7030; J7040; J7050; J7512